=== PATIENT | female | born 1960 | race Caucasian/White ===

== ENCOUNTER → 2016-05-12 | Outpatient (CLI) | payer BC | END | disposition home or self-care (01) | LOC: MW.CHOBGYN 09:29 | PROVIDERS: ATTEND Nurse Practitioner Women's Health | DX: R21 Rash and other nonspecific skin eruption (principal) | CPT/HCPCS: 36415; 85025; 86140 ==

== ENCOUNTER → 2016-05-14 | Outpatient (CLI) | payer BC ==
[2016-05-14 13:03] LABS: CHLORIDE,CL 108 mmol/L (98-110); SODIUM,NA 141 mmol/L (136-146)
== END ==
LOC: MW.CHFP 11:27
PROVIDERS: ATTEND Physician Assistant
DX: R21 Rash and other nonspecific skin eruption (principal)
CPT/HCPCS: 36415; 80053

== ENCOUNTER 2016-10-21 06:30 | Day surgery (SDC) | payer BC ==
[~2016-10-21 06:30] MED LIST: Lactated Ringers 1,000 ML IV SCH
[2016-10-21] MEDS ORDERED: Propofol 200 MG/20 ML SDV ONE (07:22)
[2016-10-21] MEDS ORDERED: Midazolam 1 MG/ML 2 ML SDV ONE (07:22)
--- NOTE | 2016-10-21 07:22 | PCM.PREANE ---
Preanesthetic Assessment - Anesthesia/Transfusion/Family Hx Anesthesia History: Prior Anesthesia Without Reaction Family History of Anesthesia Reaction: No Transfusion History: No Prior Transfusion(s) Intubation History: Unknown - Review of Systems General: No Symptoms Pulmonary: No Symptoms Cardiovascular: No Symptoms Gastrointestinal: Abdominal Pain, Difficulty Swallowing Neurological: No Symptoms Other: Reports: None - Physical Assessment Height: 1.52 m Weight: 92.986 kg ASA Class: 3 Mental Status: Alert & Oriented x3 Airway Class: Mallampati = 2 Dentition: Reports: Dentures (upper and lower) Thyro-Mental Finger Breadths: 3 Mouth Opening Finger Breadths: 3 ROM/Head Extension: Full Lungs: Clear to Auscultation, Normal Respiratory Effort Cardiovascular: Regular Rate, Regular Rhythm - Lab Values: Laboratory Last Values POC Glucose 140 mg/dL (60-110) H 10/21/16 06:58 - Allergies Allergies/Adverse Reactions: Allergies Allergy/AdvReac Type Severity Reaction Status Date / Time codeine Allergy Hives Verified 06/09/13 09:33 Penicillins Allergy Anaphylactic Verified 06/09/13 09:33 Shock terbinafine Allergy Hives Verified 10/14/16 13:14 - Blood Blood Available: No - Anesthesia Plan Pre-Op Medication Ordered: None - Acknowledgements Anesthesia Type Planned: MAC Pt an Appropriate Candidate for the Planned Anesthesia: Yes Alternatives and Risks of Anesthesia Discussed w Pt/Guardian: Yes Pt/Guardian Understands and Agrees with Anesthesia Plan: Yes PreAnesthesia Questionnaire HEENT History: Reports: Glaucoma, Other (See Below) Other HEENT History: wears glasses, top and bottom dentures Cardiovascular History: Reports: High Cholesterol, Hypertension Respiratory History: Reports: Other (See Below) Other Respiratory History: asthma as a child Gastrointestinal History: Reports: GERD (dysphagia) Genitourinary History: Reports: None 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 hip pain) Neurological History: Reports: None Psychiatric History: Reports: Other (See Below) (h/o bulimia nervosa) Endocrine/Metabolic History: Reports: Diabetes, Type II, Obesity/BMI 30+ Hematologic History: Reports: Blood Transfusion(s) Other Hematologic History: transfusion in the past for post bleed - Past Surgical History Head Surgeries/Procedures: Reports: None HEENT Surgical History: Reports: Tonsillectomy GI Surgical History: Reports: Bariatric Procedure (adjustable gastric band placement and removal), Cholecystectomy, Hernia, Abdominal (x2) Other GI Surgeries/Procedures: abd hernia repair x2, lap band surgery Female Surgical History: Reports: Breast Biopsy (needle biopsy and lumpectomy ) Neurological Surgical History: Reports: Lumbar Spine Other Neurological Surgeries/Procedures: major back surgery - SUBSTANCE USE Smoking Status *Q: Former Smoker Recreational Drug Use History: No - HOME MEDS Home Medications: Home Meds Amitriptyline [Elavil] 12.5 mg PO BEDTIME 10/14/16 [History] Cholecalciferol (Vitamin D3) [Vitamin D3] 2,000 units PO DAILY 10/14/16 [History ] Cyclobenzaprine HCl 10 mg PO ASDIRECTED PRN 10/14/16 [History] Dorzolamide HCl/Timolol Maleat [Dorzolamide-Timolol Eye Drops] 1 drop EYEBOTH DAILY 10/14/16 [History] Pantoprazole Sodium 40 mg PO DAILY 10/14/16 [History] Pravastatin Sodium 10 mg PO BEDTIME 10/14/16 [History] Travoprost [Travatan Z] 1 drop EYEBOTH BEDTIME 10/14/16 [History] Zolpidem Tartrate 5 mg PO BEDTIME PRN 10/14/16 [History] metFORMIN HCl [Metformin HCl] 500 mg PO ACDINNER 10/14/16 [History] Losartan [Cozaar] 25 mg PO DAILY 10/15/16 [History] - CURRENT (IN HOUSE) MEDS Current Meds: Current Medications Lactated Ringer's (Ringers, Lactated) 1,000 mls @ 125 mls/hr IV ASDIRECTED ELIAS Last Admin: 10/21/16 06:56 Dose: 125 mls/hr
--- NOTE | 2016-10-21 08:41 | PCM.OPNOTE ---
- General Post-Op/Procedure Note Date of Surgery/Procedure: 10/21/16 Operative Procedure(s): egd w bx. colonoscopy Findings: see dict [id number] Pre Op Diagnosis: change in bowel habits and abd pain Post-Op Diagnosis: gerd, hiatal hernia and int hemorrhoid Anesthesia Technique: Moderate Sedation Primary Surgeon: Asim Montoya Pathology: egd bx Complications: None Condition: Good
[2016-10-21 09:43] VITALS: BP 121/67
--- NOTE | 2016-10-21 14:53 | OR ---
SURGEON: Asim Montoya MD DATE OF PROCEDURE: 10/21/2016 PREOPERATIVE DIAGNOSIS: Abdominal pain, change in bowel habits. POSTOPERATIVE DIAGNOSES: Acid reflux, hiatal hernia, and internal hemorrhoids. PROCEDURE PERFORMED: Esophagogastroduodenoscopy with biopsy and colonoscopy. FINDINGS: 1. The patient is easily sedated with HORSE IDENTIFIER and Diprivan. The patient is soundly snoring. 2. Oropharynx and proximal esophagus are free of disease. No stricture, no inflammation on the proximal esophagus. Distal esophagus and GE junction at 30 suggests possible hiatal hernia and with flame-like salmon color change consistent with moderate acid reflux. No esophageal ulcer observed and stomach rugae is normal in appearance. Antrum is a bit inflamed. Throughout the whole stomach, there is no blood, bile, and food particle. Duodenum bulb is normal and duodenum all the way to the 2nd portion is also normal in appearance. Scope retrieved back to the stomach. Retroflexed look at the fundus of the stomach, the patient has mild hiatal hernia and no other etiology. Biopsy done at antrum, body, GE junction at 30 pull out the camera while sucking air. DESCRIPTION OF PROCEDURE: The patient was taken to the endoscopy room, and with the HORSE IDENTIFIER, Diprivan was administered. A well-lubricated EGD scope was gently inserted through the oropharynx, down the esophagus, passing through the gastroesophageal junction, into the stomach. The mucosa was examined upon the passage. Any etiology will be noted. Once in the stomach, we continued to advance to the distal antrum, passed through the pylorus into the second portion of the duodenum. Again, the mucosa was examined for any abnormality and etiology. The scope was then retrieved back to the stomach and then retroflexed to look at the fundus of the stomach. If a biopsy was indicated, we will biopsy the antrum, body, and gastroesophageal junction. The air will be sucked out while the scope is retrieved to reduce the patient's discomfort. The patient tolerated the procedure well. There were no intraoperative complications. Dr. Montoya was present through the whole procedure. Prior to surgery, a time-out had been called, the patient identified, procedure identified and antibiotic administered. COLONOSCOPY FINDINGS: The patient is easily sedated with HORSE IDENTIFIER and Diprivan. The patient is soundly snoring. The patient's bowel prep is pretty good, above average, very little liquid stool, and the patient's colon is rather dilated and redundant at the sigmoid, and requiring lying the patient on her back in order to get to the cecum. Cecum indicated by ileocecal fold, one-to-one indentation, light emittance, and appendiceal orifice is not observed and mucosa examined. Upon scope pulling out, the patient does not have diverticulosis, polyp, mass, growth, inflammation, stricture, ulceration, bleeding, AV malformation, none of those. The patient has significant internal hemorrhoid and no external hemorrhoids. The patient would benefit from repeat colonoscopy in 10 years from today or if clinically indicated otherwise. DESCRIPTION OF PROCEDURE: The patient was taken to the endoscopy room. A time out was called, patient identified, and procedure identified. Diprivan was then administrated. Patient went from awake to sleep, hearing doctor talking or door closing is normal. Perineum inspection and digital examination were then performed. A well- lubricated colonoscope was gently inserted through the rectum, advanced past the rectosigmoid junction, the descending colon, splenic flexure, transverse colon, hepatic flexure, ascending colon, arrived to the cecum. Cecum was identified as dictated in the finding. Then the scope was carefully withdrawn while attention was paid to the mucosal surface for any abnormality. Air will be sucked out during the scope withdrawal. At the rectum, retroflexed to examine any rectal diseases, fistula or hemorrhoids. Patient tolerated procedure well. There were no intraoperative complications, and Dr. Montoya was present throughout the whole procedure. As always, thank you for your kind referral. MICHELET / NAVYA /[id number]
== END 2016-10-21 09:15 | disposition home or self-care (01) ==
LOC: MW.SDS 06:30
PROVIDERS: ATTEND Surgery
DX: K29.40 Chronic atrophic gastritis without bleeding (principal); K64.8 Other hemorrhoids; K21.9 Gastro-esophageal reflux disease without esophagitis; K44.9 Diaphragmatic hernia without obstruction or gangrene; E11.9 Type 2 diabetes mellitus without complications; I10 Essential (primary) hypertension; E78.1 Pure hyperglyceridemia; Z88.0 Allergy status to penicillin; Z88.8 Allergy status to other drugs, medicaments and biological substances; E66.9 Obesity, unspecified; Z68.41 Body mass index [BMI] 40.0-44.9, adult; Z79.84 Long term (current) use of oral hypoglycemic drugs; Z79.899 Other long term (current) drug therapy; Z98.890 Other specified postprocedural states; Z90.49 Acquired absence of other specified parts of digestive tract; Z87.891 Personal history of nicotine dependence
CPT/HCPCS: 43239; 45378; 81025; 82962; 88305; 88312; J2250; J7120; 00740; J2704

== ENCOUNTER 2018-07-28 09:41 | Day surgery (SDC) | payer BC ==
[~2018-07-28 09:41] MED LIST changes: +Clindamycin Phosphate in D5W 900 MG in Premix Bag 1 BAG IV SCH
[2018-07-28] MEDS ORDERED: Propofol 200 MG/20 ML SDV ONE (10:16)
[2018-07-28] MEDS ORDERED: Ondansetron 4 MG/2 ML SDV ONE (10:17)
[2018-07-28] MEDS ORDERED: Dexamethasone 4 MG/ML 5 ML MDV ONE (10:17)
[2018-07-28] MEDS ORDERED: Midazolam 1 MG/ML 2 ML SDV ONE (10:17)
[2018-07-28] MEDS ORDERED: fentaNYL 250 MCG/5 ML SDV ONE (10:17)
--- NOTE | 2018-07-28 12:02 | PCM.PREANE ---
Preanesthetic Assessment - Anesthesia/Transfusion/Family Hx Anesthesia History: Prior Anesthesia Without Reaction Family History of Anesthesia Reaction: No Transfusion History: Prior Transfusion Without Reaction Intubation History: Unknown - Review of Systems General: No Symptoms Pulmonary: No Symptoms Cardiovascular: No Symptoms Gastrointestinal: No Symptoms Neurological: No Symptoms Other: Reports: None - Physical Assessment NPO Status Date: 07/27/18 NPO Status Time: 20:00 O2 Sat by Pulse Oximetry: 95 Respiratory Rate: 18 Vital Signs: Last Vital Signs Temp 36.2 C 07/28/18 10:15 Pulse 87 07/28/18 10:15 Resp 18 07/28/18 10:15 BP 157/77 H 07/28/18 10:15 Pulse Ox 95 07/28/18 10:15 Height: 5 ft Weight: 85.729 kg ASA Class: 2 Mental Status: Alert & Oriented x3 Airway Class: Mallampati = 2 Dentition: Reports: Dentures (upper and lower) Thyro-Mental Finger Breadths: 3 Mouth Opening Finger Breadths: 2 ROM/Head Extension: Limited/Partial Lungs: Clear to Auscultation, Normal Respiratory Effort Cardiovascular: Regular Rate, Regular Rhythm - Allergies Allergies/Adverse Reactions: Allergies Allergy/AdvReac Type Severity Reaction Status Date / Time codeine Allergy Hives Verified 07/26/18 09:34 latex Allergy Blisters Verified 07/26/18 09:34 Penicillins Allergy Anaphylactic Verified 07/26/18 09:34 Shock terbinafine Allergy Hives Verified 07/26/18 09:34 - Blood Blood Available: No - Anesthesia Plan Pre-Op Medication Ordered: None - Acknowledgements Anesthesia Type Planned: General Anesthesia Pt an Appropriate Candidate for the Planned Anesthesia: Yes Alternatives and Risks of Anesthesia Discussed w Pt/Guardian: Yes Pt/Guardian Understands and Agrees with Anesthesia Plan: Yes PreAnesthesia Questionnaire HEENT History: Reports: Glaucoma, Other (See Below) Other HEENT History: wears glasses, has upper and lower dentures Cardiovascular History: Reports: High Cholesterol, Hypertension Respiratory History: Reports: Other (See Below) Other Respiratory History: asthma as a child Gastrointestinal History: Reports: GERD, Hiatal Hernia Genitourinary History: Reports: None 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 History: Reports: Musculoskeletal History: Reports: Arthritis, Back Pain, Chronic Neurological History: Reports: None Psychiatric History: Reports: Depression (situational), Other (See Below) Endocrine/Metabolic History: Reports: Diabetes, Type II, Obesity/BMI 30+ Hematologic History: Reports: Blood Transfusion(s) Other Hematologic History: transfusion in the past for post bleed - Past Surgical History Head Surgeries/Procedures: Reports: None HEENT Surgical History: Reports: Tonsillectomy GI Surgical History: Reports: Bariatric Procedure, Cholecystectomy, Colonoscopy , Hernia, Inguinal Other GI Surgeries/Procedures: abd hernia repair x2, lap band surgery Female Surgical History: Reports: Breast Biopsy Neurological Surgical History: Reports: Lumbar Spine, Spinal Fusion Other Neurological Surgeries/Procedures: major back surgery x3 - SUBSTANCE USE Smoking Status *Q: Former Smoker Tobacco Use Within Last Twelve Months: No Recreational Drug Use History: No - HOME MEDS Home Medications: Home Meds Cholecalciferol (Vitamin D3) [Vitamin D3] 2,000 units PO DAILY 10/14/16 [History ] Cyclobenzaprine HCl 10 mg PO ASDIRECTED PRN 10/14/16 [History] Dorzolamide HCl/Timolol Maleat [Dorzolamide-Timolol Eye Drops] 1 drop EYEBOTH QAM 10/14/16 [History] Pantoprazole Sodium 40 mg PO QAM 10/14/16 [History] Pravastatin Sodium 10 mg PO BEDTIME 10/14/16 [History] Travoprost [Travatan Z] 1 drop EYEBOTH BEDTIME 10/14/16 [History] Zolpidem Tartrate 5 mg PO BEDTIME PRN 10/14/16 [History] Losartan [Cozaar] 25 mg PO BEDTIME 10/15/16 [History] Aspirin [Adult Low Dose Aspirin EC] 81 mg PO DAILY 07/26/18 [History] Belvig 10 mg PO DAILY 07/26/18 [History] Vitamin B Complex 1 tab PO DAILY 07/26/18 [History] - CURRENT (IN HOUSE) MEDS Current Meds: Current Medications Clindamycin Phosphate 900 mg/ (Premix) 50 mls @ 100 mls/hr IV ONCALL ELIAS Lactated Ringer's (Ringers, Lactated) 1,000 mls @ 100 mls/hr IV ASDIRECTED ELIAS Last Admin: 07/28/18 10:15 Dose: 100 mls/hr Discontinued Medications Dexamethasone (Dexamethasone) Confirm Administered Dose 20 mg .ROUTE .STK-MED ONE Stop: 07/28/18 10:18 Fentanyl (Sublimaze) Confirm Administered Dose 250 mcg .ROUTE .STK-MED ONE Stop: 07/28/18 10:18 Lidocaine HCl (Xylocaine-Mpf 1%) Confirm Administered Dose 5 mls @ as directed .ROUTE .STK-MED ONE Stop: 07/28/18 10:18 Midazolam HCl (Versed 1 Mg/Ml) Confirm Administered Dose 2 mg .ROUTE .STK-MED ONE Stop: 07/28/18 10:18 Ondansetron HCl (Zofran) Confirm Administered Dose 4 mg .ROUTE .STK-MED ONE Stop: 07/28/18 10:18 Propofol (Diprivan 20 Ml) Confirm Administered Dose 200 mg .ROUTE .STK-MED ONE Stop: 07/28/18 10:17
[2018-07-28] MEDS ORDERED: Rocuronium 100 MG/10 ML Syringe ONE (12:17)
[2018-07-28] MEDS ORDERED: Lidocaine 1% 20 ML MDV ONE (13:14)
[2018-07-28] MEDS ORDERED: fentaNYL 100 MCG/2 ML SDV IVPUSH PRN ×2 (13:58→15:34)
--- NOTE | 2018-07-28 14:25 | PCM.OPNOTE ---
- General Post-Op/Procedure Note Date of Surgery/Procedure: 07/28/18 Operative Procedure(s): L wrist first dorsal compartment release. L knee scope with PMM Post-Op Diagnosis: L knee DJD, L knee med mensicus tear, L wrist deQuervains stenosing tenosynovitis Anesthesia Technique: General LMA Primary Surgeon: Jazzy Triplett Casting Supervisor: Anna Zhao in mLs: 10 Condition: Good Free Text/Narrative:: tt=6 min GABRIELLA, 16 min AMANDAE #[id number]
--- NOTE | 2018-07-28 15:02 | PCM.POSTAN ---
POST ANESTHESIA ASSESSMENT - MENTAL STATUS Mental Status: Alert, Oriented - RESPIRATORY Respiratory Status: Respiratory Rate WNL, Airway Patent, O2 Saturation Stable - CARDIOVASCULAR CV Status: Pulse Rate WNL, Blood Pressure Stable - GASTROINTESTINAL GI Status: No Symptoms - PAIN Pain Score: 5 - POST OP HYDRATION Hydration Status: Adequate & Stable - OBSERVATIONS Free Text/Narrative:: no anesthesia problems
[2018-07-28] MEDS ORDERED: Acetaminophen/HYDROcodone 325-5 MG Tab PO ONE (15:35)
[2018-07-28 16:44] VITALS: BP 129/59
--- NOTE | 2018-07-28 19:14 | OR ---
SURGEON: Jazzy Triplett MD DATE OF PROCEDURE: 07/28/2018 PREOPERATIVE DIAGNOSES: 1. Left knee medial meniscus tear. 2. Left wrist De Quervain's stenosing tenosynovitis. POSTOPERATIVE DIAGNOSES: 1. Left knee medial meniscus tear. 2. Left wrist De Quervain's stenosing tenosynovitis. 3. Left knee degenerative joint disease. PROCEDURE PERFORMED: 1. Left knee arthroscopy with partial medial meniscectomy. 2. Left wrist first dorsal compartment release. PRIMARY SURGEON: Jazzy Triplett MD. TURKEY EGG GATHERER: Anna Zhao PA-C. ANESTHESIA: General. ESTIMATED BLOOD LOSS: 10 mL. TOURNIQUET TIME: 6 minutes on the left upper extremity and 16 minutes on the left lower extremity. COMPLICATIONS: None. DVT PROPHYLAXIS: Not indicated. IMPLANTS USED: None. BRIEF HISTORY: Nieves is a 58-year-old female who has had complaint of continued left knee pain as well as left wrist pain. She was found to have de Quervain tenosynovitis. We did try bracing as well as injection, which did not give her lasting relief. Due to her lack of response to conservative treatment, I did recommend surgical intervention. She has also had continued left knee pain with an MRI showing a tear of the medial meniscus. I did discuss risks and goals of both procedures with the patient and these were documented preoperatively. She agreed to proceed. DESCRIPTION OF PROCEDURE: The patient was properly identified and brought to the operating room. She was transferred from the OR cart and placed on the operating table in supine position. General anesthesia was administered. After adequate anesthesia was obtained, well-padded tourniquets were applied to the left upper and lower extremities. Left upper and lower extremities were prepped in standard fashion using ChloraPrep solution. They were then sterilely draped. A time-out was performed to ensure correct site and procedure. Preoperative antibiotics were given. The surgical sites had been marked preoperatively. I first turned my attention to the left upper extremity. An Esmarch was used to exsanguinate the left upper extremity and the tourniquet was inflated to 200 mmHg. An incision was made over the first dorsal compartment. Subcutaneous tissues were incised. Soft tissues were dissected down to the level of the first dorsal compartment. This was identified. An incision was made over the radial border of the first dorsal compartment tendon sheath. The tendons were then inspected proximally. There did not appear to be a separate tendon sheath present. I did pull on the tendons and no further constriction was noted. The wound was copiously irrigated with saline solution. The tourniquet was then deflated. Subcutaneous tissues were closed with 2-0 Vicryl, and the skin was closed with a running 4-0 Monocryl suture. 0.25% Marcaine was injected along the incision site at the completion of the procedure. Steri-Strips and Benzoin were placed. Xeroform gauze was placed over the wound and a bulky dressing was applied. We then turned our attention to the knee. An Esmarch was used to exsanguinate the left lower extremity and tourniquet was inflated to 250 mmHg. A lateral portal arthrotomy was established. Blunt trocar and cannula were introduced into the suprapatellar pouch. Camera, inflow, and outflow were assembled. No significant synovitis was noted. The patellofemoral joint was then visualized. She did have grade 2 to grade 3 chondromalacia along the lateral facet of the patella. The trochlear groove showed diffuse grade 2 degenerative findings. Minor fat pad impingement was noted. I then extended down the lateral and medial gutters. No loose bodies were identified. I then entered the medial compartment. A medial portal arthrotomy was established. The meniscus was probed. She was found to have a radial tear of the posterior horn of the medial meniscus. Using a combination of biters and shaver, this was resected back to a stable remnant. It was again probed and found to be stable. The joint surfaces were then inspected. The medial tibial plateau showed nearly full thickness cartilage loss along the posterior aspect of the tibial plateau. The remainder of the tibial plateau showed grade 3 degenerative findings. Diffuse grade 2 degenerative changes were noted along the medial femoral condyle. I then entered the notch. Both the ACL and PCL were visualized and probed and found to be intact. I then entered the lateral compartment. Minor degenerative fraying was noted along the central portion of the meniscus, however, no tearing was noted. The lateral tibial plateau also showed diffuse grade 3 degenerative findings with grade 2 degenerative findings over the lateral femoral condyle. I then re-entered the patellofemoral joint. Chondroplasty of the patella was performed. Instruments were then removed from the knee. The portal sites were closed with 3-0 nylon. 1% Lidocaine was injected along the portal tracts. Xeroform gauze was placed over the wounds and a bulky dressing was applied. She was awakened from her anesthetic and transferred back to the operating room cart. She was brought to recovery room in stable condition. All needle and sponge counts were correct. MALA / NAVYA /[id number]
== END 2018-07-28 16:34 | disposition home or self-care (01) ==
LOC: MW.SDS 09:41
PROVIDERS: ATTEND Orthopaedic Surgery
DX: S83.242A Other tear of medial meniscus, current injury, left knee, initial encounter (principal); M65.4 Radial styloid tenosynovitis [de Quervain]; M17.12 Unilateral primary osteoarthritis, left knee; M22.42 Chondromalacia patellae, left knee; M25.862 Other specified joint disorders, left knee; I10 Essential (primary) hypertension; E11.9 Type 2 diabetes mellitus without complications; E78.00 Pure hypercholesterolemia, unspecified; K21.9 Gastro-esophageal reflux disease without esophagitis; G89.29 Other chronic pain; M54.5 Low back pain; M19.049 Primary osteoarthritis, unspecified hand; X58.XXXA Exposure to other specified factors, initial encounter; Z88.5 Allergy status to narcotic agent; Z88.0 Allergy status to penicillin; Z88.8 Allergy status to other drugs, medicaments and biological substances; Z91.040 Latex allergy status; Z87.891 Personal history of nicotine dependence; Z79.82 Long term (current) use of aspirin; Z79.899 Other long term (current) drug therapy
CPT/HCPCS: A4217; A9270-GY; J0131; J0330; J1100; J2001; J2250; J2405; J2704; J3010; J3490; J7120

== ENCOUNTER 2018-08-25 12:11 | Emergency (ER) | payer BC ==
--- NOTE | 2018-08-25 12:42 | EDM.PDOC ---
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 She said that when she fell down she landed directly on her humeral area of her shoulder and arm and felt pain to that area but felt more pain in her left chest wall underneath her armpit and on her breast. She does not have left breast pain and she is not having any shortness of breath. She did not hit her head pass out or blackout and has no head neck or midline back pain is no abdominal pain nausea or vomiting. She said that after the events she put ice on the area of her injuries and it did not improve but she did not take any [id number] meds. She's concerned and wanted evaluation. She has no stated history of a shoulder injury in the past. Prior to these events she was in her usual state of good health and was not lightheaded or dizzy and had no systemic complaints. She has no neurosensory changes in her left upper extremity and she says the majority of her pain is at the anterior deltoid of the shoulder as well as in the rib cage underneath her axillary area and breast on the left. Review of systems: As per history of present illness and below otherwise all systems reviewed and negative. Past medical history: As per history of present illness and as reviewed below otherwise noncontributory. Surgical history: As per history of present illness and as reviewed below otherwise noncontributory. Social history: No reported history of drug or alcohol abuse. Family history: As per history of present illness and as reviewed below otherwise noncontributory. Physical exam: General: Well-developed well-nourished mildly overweight female who is nontoxic and vital signs are noted by me. HEENT: Atraumatic, normocephalic, negative for conjunctival pallor or scleral icterus, mucous membranes moist, throat clear, neck supple, nontender, trachea midline. There are no midline step-offs in his defects of the cervical spine Lungs: Clear to auscultation, breath sounds equal bilaterally, chest wall has tenderness in the mid axillary line extending to the anterior axillary line on the left rib area without any defects deformities crepitus or ecchymosis. I can reproduce the pain. There is no left breast tenderness defects or deformities and no soft tissue swelling. Heart: S1S2, regular rate and rhythm no overt murmurs Abdomen: Soft, nondistended, nontender. More specifically in the left upper quadrant and flank area there is no tenderness or soft tissue injuries seen in the soft tissue of the abdominal wall Negative for masses or hepatosplenomegaly. Negative for costovertebral tenderness. Pelvis: Stable nontender. No lateral hip tenderness Genitourinary: Deferred. Rectal: Deferred. Extremities: Atraumatic, and full range of motion of all extremities including the left upper extremity. On palpation there is some mild tenderness at the proximal humerus and deltoid area and with passive range of motion the patient says that with full abduction there is some discomfort. There is no clavicle tenderness defects or deformities and no bony tenderness defects or deformities of the humerus elbow or distal arm. Most of the discomfort that I elicited is more soft tissue in the deltoid and there is no discrete trigger point tenderness or fullness. The legs are negative for cords or calf pain. Neurovascular unremarkable. Neuro: Awake, alert, oriented. Cranial nerves II through XII unremarkable. Cerebellum unremarkable. Motor and sensory unremarkable throughout. Exam nonfocal. Back: There are no midline step-offs in his defects of the thoracic or lumbar spine and there is no posterior rib tenderness more specifically on the left. Diagnostics: X-ray of left ribs with chest, left shoulder x-ray Therapeutics: Patient declined pain medications Please note that this patient does take one baby aspirin daily and this case was not called as a trauma alert. I did briefly discuss the age of this patient be aspirin use and the injury to Dr. Li who is our print production coordinator and our trauma surgeon on-call and she said this does not meet criteria for trauma alert. Impression: Left shoulder and chest wall contusion status post fall Definitive disposition and diagnosis as appropriate pending reevaluation and review of above. left shoulder Pain Score (Numeric/FACES): 4 - Related Data Allergies Allergy/AdvReac Type Severity Reaction Status Date / Time codeine Allergy Hives Verified 08/25/18 12:27 latex Allergy Blisters Verified 08/25/18 12:27 Penicillins Allergy Anaphylactic Verified 08/25/18 12:27 Shock terbinafine Allergy Hives Verified 08/25/18 12:27 Home Meds: Home Meds Cholecalciferol (Vitamin D3) [Vitamin D3] 2,000 units PO DAILY 10/14/16 [History ] Cyclobenzaprine HCl 10 mg PO ASDIRECTED PRN 10/14/16 [History] Dorzolamide HCl/Timolol Maleat [Dorzolamide-Timolol Eye Drops] 1 drop EYEBOTH QAM 10/14/16 [History] Pantoprazole Sodium 40 mg PO QAM 10/14/16 [History] Pravastatin Sodium 10 mg PO BEDTIME 10/14/16 [History] Travoprost [Travatan Z] 1 drop EYEBOTH BEDTIME 10/14/16 [History] Zolpidem Tartrate 5 mg PO BEDTIME PRN 10/14/16 [History] Losartan [Cozaar] 25 mg PO BEDTIME 10/15/16 [History] Aspirin [Adult Low Dose Aspirin EC] 81 mg PO DAILY 07/26/18 [History] Vitamin B Complex 1 tab PO DAILY 07/26/18 [History] Acetaminophen [Tylenol Extra Strength] 500 - 1,000 mg PO Q6H PRN #20 tab [Rx] Past Medical History HEENT History: Reports: Glaucoma, Other (See Below) Other HEENT History: wears glasses, has upper and lower dentures Cardiovascular History: Reports: High Cholesterol, Hypertension Respiratory History: Reports: Other (See Below) Other Respiratory History: asthma as a child Gastrointestinal History: Reports: GERD, Hiatal Hernia Genitourinary History: Reports: None 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: Musculoskeletal History: Reports: Arthritis, Back Pain, Chronic Neurological History: Reports: None Psychiatric History: Reports: Depression, Other (See Below) Endocrine/Metabolic History: Reports: Diabetes, Type II, Obesity/BMI 30+ Hematologic History: Reports: Blood Transfusion(s) Other Hematologic History: transfusion in the past for post bleed Immunologic History: Reports: None Oncologic (Cancer) History: Reports: None Dermatologic History: Reports: None - Past Surgical History Head Surgeries/Procedures: Reports: None HEENT Surgical History: Reports: Tonsillectomy Cardiovascular Surgical History: Reports: None Respiratory Surgical History: Reports: None GI Surgical History: Reports: Bariatric Procedure, Cholecystectomy, Colonoscopy , Hernia, Inguinal Other GI Surgeries/Procedures: abd hernia repair x2, lap band surgery Female Surgical History: Reports: Breast Biopsy Endocrine Surgical History: Reports: None Neurological Surgical History: Reports: Lumbar Spine, Spinal Fusion Other Neurological Surgeries/Procedures: major back surgery x3 Musculoskeletal Surgical History: Reports: Other (See Below) Other Musculoskeletal Surgeries/Procedures:: left wrist surgery for tightness, knee scope Oncologic Surgical History: Reports: None Dermatological Surgical History: Reports: None Social & Family History - Family History Family Medical History: Noncontributory - Tobacco Use Smoking Status *Q: Former Smoker Used Tobacco, but Quit: Yes Month/Year Tobacco Last Used: 25 years - Caffeine Use Caffeine Use: Reports: Coffee, Soda - Recreational Drug Use Recreational Drug Use: No ED ROS GENERAL - Review of Systems Review Of Systems: ROS reveals no pertinent complaints other than HPI. ED EXAM, GENERAL - Physical Exam Exam: See Below (See dictation) Course - Vital Signs Last Recorded V/S: Last Vital Signs Temp 36.2 C 08/25/18 12:25 Pulse 69 08/25/18 12:25 Resp 18 08/25/18 12:25 BP 145/83 H 08/25/18 12:25 Pulse Ox 97 08/25/18 12:25 Departure - Departure Time of Disposition: 13:44 Disposition: Home, Self-Care 01 Condition: Good Clinical Impression: Fall Qualifiers: Encounter type: initial encounter Qualified Code(s): W19.XXXA - Unspecified fall, initial encounter Contusion of left chest wall Qualifiers: Encounter type: initial encounter Qualified Code(s): S20.212A - Contusion of left front wall of thorax, initial encounter Contusion of left shoulder Qualifiers: Encounter type: initial encounter Qualified Code(s): S40.012A - Contusion of left shoulder, initial encounter - Discharge Information Forms: ED Department Discharge Additional Instructions: The following information is given to patients seen in the emergency department who are being discharged to home. This information is to outline your options for follow-up care. We provide all patients seen in our emergency department with a follow-up referral. The need for follow-up, as well as the timing and circumstances, are variable depending upon the specifics of your emergency department visit. If you don't have a primary care physician on staff, we will provide you with a referral. We always advise you to contact your personal physician following an emergency department visit to inform them of the circumstance of the visit and for follow-up with them and/or the need for any referrals to a consulting specialist. The emergency department will also refer you to a specialist when appropriate. This referral assures that you have the opportunity for followup care with a specialist. All of these measure are taken in an effort to provide you with optimal care, which includes your followup. Under all circumstances we always encourage you to contact your private physician who remains a resource for coordinating your care. When calling for followup care, please make the office aware that this follow-up is from your recent emergency room visit. If for any reason you are refused follow-up, please contact the [facility] emergency department at and ask to speak to the emergency department charge nurse. [facility] Primary care- Internal Medicine and [facility] [address] [place] [id number] [facility] Specialty Care--Orthopedic clinic Professional Building [address] [place] [id number] Ice to area for the next 24 hours and then he may switch to heat. Use over-the- counter Tylenol and/or ibuprofen for pain management and try to slowly range of motion at the shoulder to keep the area open and mobile. Please call and schedule a follow-up appointment with your provider in the clinic or one of hours and also with orthopedics clinic if her shoulder continues to hurt. Return to ER as needed and as discussed
--- NOTE | 2018-08-25 13:38 | CR ---
EXAMINATION: PA chest and left RIBS HISTORY: Trauma. FINDINGS: The trachea is midline. The cardiomediastinal silhouette is within normal limits. No pulmonary infiltrates, effusions or pneumothorax. Osseous structures appear unremarkable. No displaced rib fracture. IMPRESSION: No acute cardiopulmonary process.
--- NOTE | 2018-08-25 13:39 | CR ---
EXAMINATION: Left shoulder HISTORY: Pain COMPARISON: None TECHNIQUE: 3 views FINDINGS/IMPRESSION: There is no acute osseous abnormality, dislocation, or fracture. Bone mineralization appears normal. Likely mild joint space narrowing within the glenohumeral joint. Mild acromioclavicular osteoarthritic changes.
[2018-08-25 14:00] VITALS: BP 126/82
== END 2018-08-25 14:00 | disposition home or self-care (01) ==
LOC: MW.ED 12:11
DX: S20.212A Contusion of left front wall of thorax, initial encounter (principal); S40.012A Contusion of left shoulder, initial encounter; E11.9 Type 2 diabetes mellitus without complications; F32.9 Major depressive disorder, single episode, unspecified; K21.9 Gastro-esophageal reflux disease without esophagitis; I10 Essential (primary) hypertension; E78.00 Pure hypercholesterolemia, unspecified; Z79.82 Long term (current) use of aspirin; Z87.891 Personal history of nicotine dependence; Z79.899 Other long term (current) drug therapy; Z88.5 Allergy status to narcotic agent; Z91.040 Latex allergy status; Z88.0 Allergy status to penicillin; Z88.8 Allergy status to other drugs, medicaments and biological substances; W18.31XA Fall on same level due to stepping on an object, initial encounter; Y99.0 Civilian activity done for income or pay
CPT/HCPCS: 71101-26-LT; 71101-LT; 73030-26-LT; 73030-LT; 99283-25; 99284

== ENCOUNTER 2019-04-14 08:07 | Day surgery (SDC) | payer BC ==
[~2019-04-14 08:07] MED LIST changes: +Clindamycin Phosphate in D5W 50 ML ONE; +Clindamycin Phosphate in D5W 600 MG in Premix Bag 1 BAG IV ONE; -Clindamycin Phosphate in D5W 900 MG in Premix Bag 1 BAG IV SCH; +Sodium Chloride 0.9% 10 ML SDV IV PRN; +Sodium Chloride 0.9% 10 ML Syringe FLUSH PRN; +Sodium Chloride 0.9% 2.5 ML Syringe FLUSH PRN
[2019-04-14] MEDS ORDERED: Lidocaine 2% 5 ML SDV ONE (08:41)
[2019-04-14] MEDS ORDERED: fentaNYL 100 MCG/2 ML SDV ONE (08:41)
[2019-04-14] MEDS ORDERED: Ondansetron 4 MG/2 ML SDV ONE (08:41)
[2019-04-14] MEDS ORDERED: Propofol 200 MG/20 ML SDV ONE (08:41)
[2019-04-14] MEDS ORDERED: Midazolam 1 MG/ML 2 ML SDV ONE (08:42)
--- NOTE | 2019-04-14 09:02 | PCM.PREANE ---
Preanesthetic Assessment - Anesthesia/Transfusion/Family Hx Anesthesia History: Prior Anesthesia Without Reaction Family History of Anesthesia Reaction: No Transfusion History: Prior Transfusion Without Reaction Intubation History: Unknown - Review of Systems General: No Symptoms Pulmonary: No Symptoms Cardiovascular: No Symptoms Gastrointestinal: No Symptoms Neurological: No Symptoms Other: Reports: None - Physical Assessment Vital Signs: Last Vital Signs Temp 36.3 C 04/14/19 08:25 Pulse 75 04/14/19 08:25 Resp 16 04/14/19 08:25 BP 139/76 04/14/19 08:25 Pulse Ox 95 04/14/19 08:25 Height: 5 ft Weight: 87.543 kg ASA Class: 3 Mental Status: Alert & Oriented x3 Airway Class: Mallampati = 2 Dentition: Reports: Dentures (upper and lower) Thyro-Mental Finger Breadths: 3 Mouth Opening Finger Breadths: 2 (small mouth) ROM/Head Extension: Full Lungs: Clear to Auscultation, Normal Respiratory Effort Cardiovascular: Regular Rate, Regular Rhythm - Allergies Allergies/Adverse Reactions: Allergies Allergy/AdvReac Type Severity Reaction Status Date / Time codeine Allergy Hives Verified 04/14/19 08:56 latex Allergy Blisters Verified 04/14/19 08:56 Penicillins Allergy Anaphylactic Verified 04/14/19 08:56 Shock terbinafine Allergy Hives Verified 04/14/19 08:56 - Blood Blood Available: No - Anesthesia Plan Pre-Op Medication Ordered: None - Acknowledgements Anesthesia Type Planned: MAC Pt an Appropriate Candidate for the Planned Anesthesia: Yes Alternatives and Risks of Anesthesia Discussed w Pt/Guardian: Yes Pt/Guardian Understands and Agrees with Anesthesia Plan: Yes PreAnesthesia Questionnaire HEENT History: Reports: Glaucoma, Other (See Below) Other HEENT History: wears glasses, has upper and lower dentures Cardiovascular History: Reports: High Cholesterol, Hypertension Respiratory History: Reports: Other (See Below) Other Respiratory History: asthma as a child Gastrointestinal History: Reports: GERD (dysphagia for solids sometimes), Hiatal Hernia Genitourinary History: Reports: None 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: Musculoskeletal History: Reports: Arthritis, Back Pain, Chronic Neurological History: Reports: None Psychiatric History: Reports: Depression, Other (See Below) Endocrine/Metabolic History: Reports: Diabetes, Type II, Obesity/BMI 30+ (BMI 37.7), Vitamin D Deficiency Other Endocrine/Metabolic History: diet controlled type II diabetes, h/o bulemia nervosa Hematologic History: Reports: Blood Transfusion(s) Other Hematologic History: transfusion in the past for post bleed Immunologic History: Reports: None Oncologic (Cancer) History: Reports: None Dermatologic History: Reports: None - Past Surgical History Head Surgeries/Procedures: Reports: None HEENT Surgical History: Reports: Tonsillectomy Cardiovascular Surgical History: Reports: None Respiratory Surgical History: Reports: None GI Surgical History: Reports: Bariatric Procedure, Cholecystectomy, Colonoscopy , EGD (2 years ago), Hernia, Abdominal Other GI Surgeries/Procedures: incisional hernia repair x2, lap band surgery and removal of lap band Female Surgical History: Reports: Breast Biopsy (lumpectomy, left side) Endocrine Surgical History: Reports: None Neurological Surgical History: Reports: Lumbar Spine, Spinal Fusion Other Neurological Surgeries/Procedures: major back surgery Musculoskeletal Surgical History: Reports: Arthroscopic Knee, Other (See Below) Other Musculoskeletal Surgeries/Procedures:: left knee scope Oncologic Surgical History: Reports: None Dermatological Surgical History: Reports: None - SUBSTANCE USE Smoking Status *Q: Former Smoker Tobacco Use Within Last Twelve Months: No Recreational Drug Use History: No - HOME MEDS Home Medications: Home Meds Cyclobenzaprine HCl 10 mg PO ASDIRECTED PRN 10/14/16 [History] Dorzolamide HCl/Timolol Maleat [Dorzolamide-Timolol Eye Drops] 1 drop EYEBOTH QAM 10/14/16 [History] Pantoprazole Sodium 40 mg PO QAM 10/14/16 [History] Pravastatin Sodium 10 mg PO BEDTIME 10/14/16 [History] Zolpidem Tartrate 5 mg PO BEDTIME PRN 10/14/16 [History] Losartan [Cozaar] 25 mg PO DAILY 10/15/16 [History] Aspirin [Adult Low Dose Aspirin EC] 81 mg PO DAILY 07/26/18 [History] Acetaminophen [Tylenol Extra Strength] 500 - 1,000 mg PO Q6H PRN #20 tab [Rx] Latanoprost/Pf [Latanoprost 0.005% Eye Drop] 1 drop EYEBOTH DAILY 04/11/19 [ History] Meloxicam 15 mg PO DAILY PRN 04/11/19 [History] - CURRENT (IN HOUSE) MEDS Current Meds: Current Medications Lactated Ringer's (Ringers, Lactated) 1,000 mls @ 125 mls/hr IV ASDIRECTED ELIAS Last Admin: 04/14/19 08:41 Dose: 125 mls/hr Sodium Chloride (Saline Flush) 10 ml FLUSH ASDIRECTED PRN PRN Reason: Keep Vein Open Sodium Chloride (Saline Flush) 2.5 ml FLUSH ASDIRECTED PRN PRN Reason: Keep Vein Open Sodium Chloride (Normal Saline) 10 ml IV ASDIRECTED PRN PRN Reason: IV Use Discontinued Medications Fentanyl (Sublimaze) Confirm Administered Dose 100 mcg .ROUTE .STK-MED ONE Stop: 04/14/19 08:42 Clindamycin Phosphate 600 mg/ (Premix) 50 mls @ 100 mls/hr IV ONETIME ONE Stop: 04/11/19 09:52 Clindamycin Phosphate (Cleocin In D5w) Confirm Administered Dose 50 mls @ as directed .ROUTE .STK-MED ONE Stop: 04/14/19 06:38 Lidocaine (Xylocaine-Mpf 2%) Confirm Administered Dose 5 ml .ROUTE .STK-MED ONE Stop: 04/14/19 08:42 Midazolam HCl (Versed 1 Mg/Ml) Confirm Administered Dose 2 mg .ROUTE .STK-MED ONE Stop: 04/14/19 08:43 Ondansetron HCl (Zofran) Confirm Administered Dose 4 mg .ROUTE .STK-MED ONE Stop: 04/14/19 08:42 Propofol (Diprivan 20 Ml) Confirm Administered Dose 400 mg .ROUTE .STK-MED ONE Stop: 04/14/19 08:42
[2019-04-14] MEDS ORDERED: Glycopyrrolate 0.2 MG/ML SDV ONE (09:27)
[2019-04-14] MEDS ORDERED: Neostigmine Methylsulfate 1 MG/ML 5 ML Syringe ONE (09:27)
[2019-04-14] MEDS ORDERED: Bupivacaine 0.5% 30 ML SDV ONE (09:50)
[2019-04-14] MEDS ORDERED: Lidocaine 1% 20 ML MDV ONE (09:50)
[2019-04-14] MEDS ORDERED: Ketamine 500 mg/10 ML MDV ONE (09:53)
[2019-04-14] MEDS ORDERED: Famotidine 20 MG/2 ML SDV ONE (10:00)
[2019-04-14] MEDS ORDERED: 50% Dextrose in Water 50 ML Syringe IVPUSH PRN (11:13)
[2019-04-14] MEDS ORDERED: Naloxone 0.4 MG/ML Syringe IVPUSH PRN (11:13)
[2019-04-14] MEDS ORDERED: fentaNYL 100 MCG/2 ML SDV IVPUSH PRN (11:13)
[2019-04-14] MEDS ORDERED: Atropine 0.1 MG/ML 10 ML Syringe IVPUSH PRN ×2 (11:13)
[2019-04-14] MEDS ORDERED: Albuterol 0.083% 2.5 MG/3 ML Neb Soln NEB PRN (11:13)
[2019-04-14] MEDS ORDERED: EPINEPHrine 1:10,000 1 MG/10 ML Syringe IVPUSH PRN (11:13)
--- NOTE | 2019-04-14 11:15 | PCM.POSTAN ---
POST ANESTHESIA ASSESSMENT - MENTAL STATUS Mental Status: Alert, Oriented - VITAL SIGNS Vital Signs: Last Vital Signs Temp 36.8 C 04/14/19 10:51 Pulse 72 04/14/19 11:11 Resp 14 04/14/19 11:11 BP 111/56 L 04/14/19 11:11 Pulse Ox 96 04/14/19 11:11 - RESPIRATORY Respiratory Status: Respiratory Rate WNL, Airway Patent, O2 Saturation Stable - CARDIOVASCULAR CV Status: Pulse Rate WNL, Blood Pressure Stable - GASTROINTESTINAL GI Status: No Symptoms - PAIN Pain Score: 0 - POST OP HYDRATION Hydration Status: Adequate & Stable - OBSERVATIONS Free Text/Narrative:: No anesthesia problems
--- NOTE | 2019-04-14 11:56 | PCM.OPNOTE ---
- General Post-Op/Procedure Note Date of Surgery/Procedure: 04/14/19 Findings: 4 x 2 x 0.5 cm piece of breast tissue containing mass excised Pre Op Diagnosis: Breast mass Post-Op Diagnosis: same Anesthesia Technique: MAC Primary Surgeon: Lisette Li Fluid Replacement, Intraop: 700 EBL in mLs: 2 Condition: Good Free Text/Narrative:: Intake & Output 04/13/19 04/14/19 04/14/19 22:59 06:59 14:59 Intake Total 750 Balance 750
--- NOTE | 2019-04-14 12:03 | PCM48HPAN ---
Post Anesthesia Note - EVALUATION WITHIN 48HRS OF ANESTHETIC Vital Signs in Normal Range: Yes Patient Participated in Evaluation: Yes Respiratory Function Stable: Yes Airway Patent: Yes Cardiovascular Function Stable: Yes Hydration Status Stable: Yes Pain Control Satisfactory: Yes Nausea and Vomiting Control Satisfactory: Yes Mental Status Recovered: Yes Vital Signs: Last Vital Signs Temp 36.1 C 04/14/19 11:20 Pulse 76 04/14/19 11:35 Resp 14 04/14/19 11:35 BP 112/62 04/14/19 11:35 Pulse Ox 95 04/14/19 11:35 - COMMENTS/OBSERVATIONS Free Text/Narrative:: No anesthesia problems.
[2019-04-14 12:15] VITALS: BP 118/64; PULSE 69
--- NOTE | 2019-04-14 14:00 | OR ---
SURGEON: LISETTE LI MD DATE OF PROCEDURE: 04/14/2019 PREOPERATIVE DIAGNOSIS: Right breast mass. POSTOPERATIVE DIAGNOSIS: Right breast mass. PROCEDURE PERFORMED: Excision of right breast lesion. PRIMARY SURGEON: Lisette Li MD. ANESTHESIA: MAC, local. FLUIDS: 700 mL of crystalloid. ESTIMATED BLOOD LOSS: 2 mL. FINDINGS: A 4 x 2 x 0.5 cm excised piece of breast tissue containing breast mass. Preoperative diagnosis states that the mass is 1.5 x 1 cm in size. COMPLICATIONS: None. INDICATIONS: The patient is a 58-year-old female who presents with a right breast lesion. The patient had a preoperative diagnostic mammogram and ultrasound. This showed a 1.75 x 0.9 cm subdermal nodule of the upper outer quadrant of the right breast at the 11 o'clock position, 8.5 cm from the nipple. The ultrasound stated that this represented either a complex sebaceous gland cyst or an epidermal inclusion cyst. The patient underwent bilateral MRI of the breasts given a family history of breast cancer. This again showed a subdermal lesion with a cystic appearing center. It was felt to be benign. Given these image findings, the decision was made to proceed with a primary excision of this lesion. The patient and I discussed the surgery; expected perioperative course; and the risks including bleeding, infection, or damage to surrounding structures. She verbalized understanding and wishes to proceed. PROCEDURE IN DETAIL: The patient was brought into the OR and placed on the OR table in supine position. A time-out was completed verifying the patient's name, age, date of , allergies, and procedure to be performed. Monitored anesthesia care was induced. The right chest wall was prepped and draped in usual standard fashion. I had preoperatively marked the lesion. I reidentified this area and anesthetized around it with 0.5% Marcaine plain. An incision was made over the top of this lesion. Cautery was used to dissect down to the level of the breast tissue. Superficial skin flaps were made both superiorly and inferiorly. I then palpated the mass which appeared to be within the breast tissue and not under the skin directly. It was grasped with an Allis and elevated. Using electrocautery, I dissected the mass out from the surrounding breast tissue. The excised portion was placed on the back table and measured. It measured 4 cm x 2 cm x 0.5 cm in size. The mass itself was indistinct, I was unable to measure it. However, based on preoperative measurements, the mass measured 1.5 x 1 cm in size. The mass was sent fresh to pathology. I inspected my operative field. Hemostasis was achieved with electrocautery. In the event that I need to go back to re-excise any margins, clips were placed on the superior, inferior, medial, lateral, and posterior margins to allow for detection of the margins in the future. The wound was then closed with interrupted 3-0 Vicryl sutures in the subcutaneous fat layer and the skin was closed with a running 4-0 Monocryl stitch. Steri-Strips and sterile dressings were applied. The patient tolerated the procedure well and was transferred to the PACU in stable condition. All counts were complete and correct at the end of the case. LEDA / NAVYA /[id number]
== END 2019-04-14 12:35 | disposition home or self-care (01) ==
LOC: MW.SDS 08:07
PROVIDERS: ATTEND Surgery
DX: N60.11 Diffuse cystic mastopathy of right breast (principal); I10 Essential (primary) hypertension; E11.9 Type 2 diabetes mellitus without complications; E78.1 Pure hyperglyceridemia; E78.00 Pure hypercholesterolemia, unspecified; K21.9 Gastro-esophageal reflux disease without esophagitis; J45.909 Unspecified asthma, uncomplicated; G47.01 Insomnia due to medical condition; G89.29 Other chronic pain; M54.5 Low back pain; M17.12 Unilateral primary osteoarthritis, left knee; M19.049 Primary osteoarthritis, unspecified hand; E66.9 Obesity, unspecified; Z68.37 Body mass index [BMI] 37.0-37.9, adult; Z88.5 Allergy status to narcotic agent; Z88.0 Allergy status to penicillin; Z88.8 Allergy status to other drugs, medicaments and biological substances; Z91.040 Latex allergy status; Z79.82 Long term (current) use of aspirin; Z79.84 Long term (current) use of oral hypoglycemic drugs; Z79.899 Other long term (current) drug therapy; Z87.891 Personal history of nicotine dependence
CPT/HCPCS: 19120; J2001; J2250; J2405; J2704; J3010; J3490; J7120; S0028; S0077; 88305

== ENCOUNTER 2023-02-09 10:38 | Emergency (ER) | payer OTHER, BC ==
[2023-02-09 12:43] VITALS: BP 139/72; PULSE 65
== END 2023-02-09 12:42 | disposition home or self-care (01) ==
LOC: MW.ED 10:38
DX: S49.92XA Unspecified injury of left shoulder and upper arm, initial encounter (principal); I10 Essential (primary) hypertension; E78.00 Pure hypercholesterolemia, unspecified; K21.9 Gastro-esophageal reflux disease without esophagitis; E11.9 Type 2 diabetes mellitus without complications; E66.9 Obesity, unspecified; Z68.37 Body mass index [BMI] 37.0-37.9, adult; Z90.49 Acquired absence of other specified parts of digestive tract; Z79.899 Other long term (current) drug therapy; W00.9XXA Unspecified fall due to ice and snow, initial encounter
CPT/HCPCS: 73030-26-LT; 73030-LT; 99283

== ENCOUNTER 2023-11-10 11:30 | Emergency (ER) | payer BC, OTHER ==
[2023-11-10] MEDS: Iopamidol 755 MG/ML 500 ML Multipack Bottle IVPUSH STA (12:19)
[2023-11-10 12:49] LABS: BASOPHILS ABSOLUTE AUTO 0.03 K/uL (0.00-0.20); BASOPHILS PERCENT AUTO 0.5 % (0.0-1.0); EOSINOPHILS ABSOLUTE AUTO 0.08 K/uL (0.00-0.45); EOSINOPHILS PERCENT AUTO 1.4 % (0.0-6.0); HEMATOCRIT 34.7 % (37.0-47.0); HEMOGLOBIN 12.2 g/dL (12.0-16.0); IMMATURE GRAN ABSOLUTE AUTO 0.01 K/uL (0.00-0.05); IMMATURE GRAN PERCENT AUTO 0.2 % (0.0-0.4); LYMPHOCYTES ABSOLUTE AUTO 2.27 K/uL (1.00-4.80); LYMPHOCYTES PERCENT AUTO 38.9 % (24.0-44.0); MEAN CORPUSCULAR HEMOGLOBIN 31.2 pg (28.0-32.0); MEAN CORPUSCULAR HGB CONC 35.2 g/dL (32.0-36.0); MEAN CORPUSCULAR VOLUME 88.7 fL (83.0-99.0); MEAN PLATELET VOLUME 9.7 fL (9.4-12.3); MONOCYTES ABSOLUTE AUTO 0.48 K/uL (0.00-0.80); MONOCYTES PERCENT AUTO 8.2 % (0.0-8.0); NEUTROPHILS ABSOLUTE AUTO 2.97 K/uL (1.80-7.70); NEUTROPHILS PERCENT AUTO 50.8 % (41.0-71.0); PLATELET COUNT,PLT 248 K/uL (150-400); RED BLOOD CELL COUNT 3.91 M/uL (4.10-5.30); WHITE BLOOD CELL COUNT,WBC 5.84 K/uL (3.9-11.3)
[2023-11-10 13:07] LABS: INR 1.05 (0.86-1.11); PTT,PARTIAL THROMBOPLSTIN TIME 29.1 SEC (23.9-30.7)
[2023-11-10 13:13] LABS: ALANINE AMINOTRANSFERASE,ALT 24 IU/L (14-63); ALBUMIN 3.4 g/dL (3.4-5.0); ALKALINE PHOSPHATASE 85 U/L (46-116); ASPARTATE AMNIOTRANSFERASE,AST 14 IU/L (15-37); BILIRUBIN TOTAL 0.4 mg/dL (0.2-1.0); BLOOD UREA NITROGEN,BUN 12 mg/dL (7.0-18.0); CALCIUM 8.9 mg/dL (8.5-10.1); CARBON DIOXIDE,CO2 26.5 mmol/L (21.0-32.0); CHLORIDE,CL 102 mmol/L (98-107); ESTIMATED GFR 64 mL/min (>60); ETHANOL BLOOD MEDICAL < 3.0 mg/dL; GLUCOSE RANDOM 90 mg/dL (74-106); MAGNESIUM 1.7 mg/dL (1.8-2.4); PROTEIN TOTAL,TP 6.7 g/dL (6.4-8.2); SODIUM,NA 135 mmol/L (136-145)
[2023-11-10 13:17] LABS: CORONAVIRUS COVID-19 NAA NEGATIVE (NEGATIVE); INFLUENZA A NAA NEGATIVE (NEGATIVE); INFLUENZA B NAA NEGATIVE (NEGATIVE)
[2023-11-10 13:55] VITALS: BP 105/60; PULSE 70
[2023-11-10] MEDS: Meclizine 25 MG Tab PO STA (14:20)
[2023-11-10] MEDS: Potassium Chloride 20 MEQ Tab.ER PO STA (14:20)
[2023-11-10] MEDS: Magnesium Oxide 400 MG Tab PO STA (14:20)
== END 2023-11-10 14:26 | disposition left against medical advice (07) ==
LOC: MW.ED 11:30
DX: R26.0 Ataxic gait (principal); R42 Dizziness and giddiness; I10 Essential (primary) hypertension; K21.9 Gastro-esophageal reflux disease without esophagitis; E78.00 Pure hypercholesterolemia, unspecified; E66.9 Obesity, unspecified; E11.8 Type 2 diabetes mellitus with unspecified complications; Z88.0 Allergy status to penicillin; Z91.040 Latex allergy status; Z88.8 Allergy status to other drugs, medicaments and biological substances; Z79.899 Other long term (current) drug therapy; Z90.49 Acquired absence of other specified parts of digestive tract; Z68.28 Body mass index [BMI] 28.0-28.9, adult; Z75.8 Other problems related to medical facilities and other health care
CPT/HCPCS: 0240U; 36415; 70450; 70496; 70498; 71045; 80053; 80307; 82947; 83735; 84484; 85025; 85610; 85730; 93005; 99285; A9270; Q9967; 93010; 99284

== ENCOUNTER 2024-01-12 11:23 | Day surgery (SDC) | payer BC ==
[~2024-01-12 11:23] MED LIST changes: -Clindamycin Phosphate in D5W 50 ML ONE; -Clindamycin Phosphate in D5W 600 MG in Premix Bag 1 BAG IV ONE; -Lactated Ringers 1,000 ML IV SCH; -Sodium Chloride 0.9% 10 ML SDV IV PRN; +Sodium Chloride 0.9% 20 ML SDV IV PRN
[2024-01-12] MEDS: Lactated Ringers 1,000 ML IV SCH (11:59)
[2024-01-12] MEDS ORDERED: Propofol 200 MG/20 ML SDV ONE (12:03)
[2024-01-12] MEDS ORDERED: Lidocaine 2% 5 ML SDV ONE (12:05)
[2024-01-12 13:49] VITALS: BP 112/77; PULSE 61
== END 2024-01-12 13:52 | disposition home or self-care (01) ==
LOC: MW.SDS 11:23
PROVIDERS: ATTEND Surgery
DX: Z12.11 Encounter for screening for malignant neoplasm of colon (principal); K21.9 Gastro-esophageal reflux disease without esophagitis; I10 Essential (primary) hypertension; E66.813 Obesity, class 3; E11.9 Type 2 diabetes mellitus without complications; Z88.5 Allergy status to narcotic agent; Z88.0 Allergy status to penicillin; Z88.8 Allergy status to other drugs, medicaments and biological substances; Z91.040 Latex allergy status; Z91.030 Bee allergy status; Z79.899 Other long term (current) drug therapy; Z87.891 Personal history of nicotine dependence; Z68.30 Body mass index [BMI] 30.0-30.9, adult; Z86.0100 Personal history of colon polyps, unspecified
CPT/HCPCS: 45378; J2704; J7120; J3490